=== PATIENT | female | born 1990 ===

== ENCOUNTER 2020-09-04 02:15 | Inpatient (IN) | payer MEDICAID, SELFPAY ==
[2020-09-04] VITALS (15 sets, daily range): BP systolic 126–183; BP diastolic 68–88; PULSE 62–100; RESP 16; TEMP 35.8–36.9; O2SAT 98–99; BMI 31.6
[2020-09-04] MEDS: ampicillin 2,000 MG in sodium chloride 0.9% (plus) 50 ML 999 MG IV (02:15)
[2020-09-04] MEDS: lactated ringers 1,000 ML 999 ML IV (02:18)
[2020-09-04 02:34] LABS: Basophils % 0.3 %; Eosinophils % 0.2 %; Hematocrit 39.5 % (37.0-47.0); Lymphocytes # 3.2 10^3/uL (0.8-4.8); Lymphocytes % 26.5 %; Mean Corpuscular HGB Conc 32.9 g/dL (30.0-36.0); Mean Platelet Volume 12.4 fL (7.4-10.4); Monocytes # 0.8 10^3/uL (0.2-0.9); Monocytes % 6.7 %; Neutrophils # 7.97 10^3/uL (1.8-7.7); Neutrophils % 65.6 %; Nucleated Red Blood Cells % 0 %; Platelet Count 154 10^3/cmm (130-400); Red Blood Count 4.49 10^6/uL (4.1-5.3); Red Cell Distribution Width 12.5 % (12.1-15.1); White Blood Count 12.2 10^3/uL (4.0-10.0)
[2020-09-04] MEDS: oxytocin 30 UNIT/500 ML BAG 600 UNIT IV (02:35)
--- NOTE | 2020-09-04 03:19 | PM.DELIVERY ---
Delivery Note: Date of delivery: September 04, 2020This 29 year od G3 now P3 female at 37 weeks and 6 days gestation had onset of labor around midnight. She arrived to [facility] at 9cm dilated with clear fluid obtained. This physician was called and IV was started. She received sara one half dose of Ampicillin prior to delivery due to unknown Group B status. She delivered by spontaneous vaginal delivery a healthy, viable male weighing 6 pounds 5 ounces. He cried well at and was suctioned at the perineum and laid on mothers abdomen. The cord was somewhat short and thus far did not go high on mothers abdomen. After sara one minute the cord was clamped and then cut by the infants father. The cord had 3 vessels. The delivered at 0230 with the placenta delivering intact spontaneously at 0235. There were no lacerations and no complications. Mom and are doing well. EBL was sara 103ml. Pre-Delivery Course: This patient began care in [facility] and moved to the [facility] after 25 weeks gestation. She was followed by this physician for the remainder of the . She did miss her last 2 appointments and did not get her group B strep testing done and Covid testing was not done prior to labor. Maternal blood type was O negative with antibody negative and Rubella was immune. The remainder of labs were normal. Delivery: Spontaneous Vaginal Delivery. A&P Assessment and plan (1) Normal spontaneous vaginal delivery: Patient is doing well at this time and will be followed for routine postpartumcare. Status: Acute Coding Level of Care Code Acute Housing Assistant Property Manager for Edgardo Myles Diagnoses Normal spontaneous vaginal delivery O80
[2020-09-04] MEDS: ibuprofen 800 mg tablet PO ×2 (03:26→21:10)
--- NOTE | 2020-09-04 08:35 | PC.NURSE ---
Patient requested for nurse to not enter room for a few hours so she can sleep, as she only was able to sleep 40 minutes last night.
--- NOTE | 2020-09-04 10:35 | PC.NURSE ---
Father requested mother not be disturbed, as she fell asleep a short time ago. Asked if nurse would come back later.
--- NOTE | 2020-09-04 11:46 | PC.NURSE ---
Patient's requested patient to continue sleeping without being disturbed.
[2020-09-04] MEDS: acetaminophen 500 mg Tablet 1000 MG PO (13:36)
--- NOTE | 2020-09-04 15:32 | PC.NURSE ---
Patient declined hemagram, after receiving information about what symptoms she would need to be concerned about including dizziness, lightheadedness. Patient states she feels absolutely great and does not want her blood levels checked due to her dislike of being poked with needles.
--- NOTE | 2020-09-05 00:45 | PC.NURSE ---
Patient refused fundal rub, reports scant bleeding and no clots.
--- NOTE | 2020-09-05 00:47 | PC.NURSE ---
During 0000 rounding patient states that she wants 2 cranberry juice and then not to be bothered again tonight so that we can sleep because we are tired. Advised Nurse would need to round on patient and baby and mother states No. I will call if we need something.
--- NOTE | 2020-09-05 07:29 | PM.OBGYDC ---
Discharge Providers [employer] Date of Admission: 09/04/20 02:15 Date of Discharge: 09/05/20 Attending Provider at Admission: Chet Varner MD Attending Provider at Discharge: Chet Varner MD Primary Care Provider: [facility] Diagnoses at Discharge Discharge Diagnosis (1) Normal spontaneous vaginal delivery: Status: Acute Reason for Visit Reason for Visit: Possible ROM Hospital Course Hospital Course Patient was admitted early yesterday morning in active labor. She delivered by spontaneous vaginal livery healthy, viable male infant with Apgars of 9 and 9 at 1 and 5 minutes respectively. She has had no problems throughout her postdelivery course. She has mild lochia and is ambulating well and tolerating a regular diet very well. The infant is breast-feeding well and she is felt to be stable for discharge home. Information Peripartum Data: Infant Delivery Method: Vaginal Physical Exam Const: COMMON NORMALS: no acute distress Resp: COMMON NORMALS: normal respiratory effort, No use of accessory muscles and clear to auscultation bilaterally AUSCULTATION: clear to auscultation bilaterally Cardio: COMMON NORMALS: regular rate, regular rhythm and No murmurs present (Cardio) RATE: regular rate RHYTHM: regular rhythm GI: COMMON NORMALS: Normal to inspection, nondistended, normoactive bowel sounds present, Soft to palpation and non-tender (Fundus is firm and well below the umbilicus.) PALPATION: Yes Soft to palpation Extremity: COMMON NORMALS: normal to inspection, full ROM and no pedal edema Neuro: COMMON NORMALS: no focal motor deficits and no sensory deficits noted Psych: COMMON NORMALS: mental status grossly normal Discharge Data Vitals: Last Vital Signs Temp 98.3 F 09/04/20 22:30 Pulse 62 09/04/20 22:30 Resp 16 09/04/20 16:40 BP 126/80 09/04/20 22:30 Pulse Ox 98 09/04/20 22:30 Discharge Plan Discharge Patient Disposition: Home Condition: Stable Prescriptions: New ibuprofen 800 mg Tablet 800 mg PO TID Qty: 90 RF: 2 docusate sodium [DOK] 100 mg Capsule 100 mg PO BID Qty: 60 RF: 1 Referrals: Chet Varner MD [Physician] - 6 Weeks Discharge Diet: Usual diet Discharge Activity: Resume usual activity Patient Instructions: Vaginal Delivery (DC), Pre-eclampsia and Eclampsia (DC), Bleeding (DC), OB Discharge Report, OB Food/Drug Interaction Guide, OB Home Care, OB Proud Parent Packet Discharge Attestations [employer] Time Spent in Discharge Care*: less than 30 min Specific Discharge Activities: Specific discharge activities: educating patient, documenting/other paperwork and evaluating patient/reviewing data Coding Level of Care Code Acute Assembler Type Bar And Segment for Chg Fwd Diagnoses Normal spontaneous vaginal delivery O80
[2020-09-05] MEDS: ibuprofen 800 mg tablet PO (08:22)
[2020-09-05] MEDS: prenatal vitamin Capsule 1 CAP PO (08:22)
[2020-09-05] MEDS: docusate sodium 100 mg Capsule PO (08:23)
[2020-09-05] MEDS: lanolin oint 7 gm 1 APPLIC TOPICAL (08:59)
[2020-09-05 10:45] VITALS: BP 142/87; PULSE 86; RESP 16; TEMP 36.6; O2SAT 98
--- NOTE | 2020-09-05 11:53 | PC.NURSE ---
pt refused MMR vaccine
== END 2020-09-05 11:10 | disposition home or self-care (01) | DRG 807 ==
LOC: OPOB 02:30 → OBGYN 02:30
PROVIDERS: Admitting Provider Family Medicine; Visit Provider Family Medicine
DX: O80 Encounter for full-term uncomplicated delivery (principal); Z37.0 Single live birth; Z3A.37 37 weeks gestation of pregnancy
CPT/HCPCS: 12345; 36415; 59025; 59409; 83986; 85025; 99211; J0290